=== PATIENT | male | born 1950 | race Caucasian/White ===

== ENCOUNTER 2019-07-02 10:31 | Outpatient (CLI) | payer MEDICARE ==
[~2019-07-02 10:31] MED LIST: Gadobenate Dimeglumine 529 MG/1 ML (20ML VIAL) ONE
--- NOTE | 2019-07-02 12:01 | MRI ---
Exam: Brain MRI with and without contrast HISTORY: Alzheimer's. Dementia, x2 years. COMPARISON: None FINDINGS: Gradient echo sequence: No hemorrhage Calvarium: Appropriate T1 marrow signal intensity Midline brain parenchyma: Unremarkable Cerebrum:No parenchymal mass, mass effect or midline shift. Brain volume, age-appropriate. Cortical g ray-white matter differentiation is preserved, with the exception of the left frontal lobe where there is a small focus of encephalomalacia and gliosis. There are T2 and FLAIR white matter hyperinte nsities due to chronic small vessel ischemic change. Ventricles: No evidence of hydrocephalus. Sinuses and mastoid air cells: There is paranasal sinus mucosal thickening, mild Diffusion: Central arterial flow is maintained. Absent restricted diffusion. Postcontrast images: No pathologic enhancement of the brain parenchyma. IMPRESSION: 1. Age-appropriate brain volume. 2. Chronic small vessel ischemic change of the white matter. 3. Absent restricted diffusion. No acute infarct. 4. Encephalomalacia and gliosis involving the left frontal lobe. Transcribed Date/Time: 07/02/2019 12:44 PM
== END 2019-07-02 10:32 | disposition home or self-care (01) ==
LOC: SCSMRI 10:31
PROVIDERS: ATTEND Psychiatry & Neurology Neurology
DX: G30.1 Alzheimer's disease with late onset (principal); I67.82 Cerebral ischemia; G93.89 Other specified disorders of brain
CPT/HCPCS: 70553; 82565; A9577

== ENCOUNTER 2024-05-22 16:00 | Outpatient (CLI) | payer MEDICARE | END 2024-05-22 16:01 | disposition home or self-care (01) | LOC: SLEEPLAB 16:00 | PROVIDERS: ATTEND Internal Medicine | DX: G47.33 Obstructive sleep apnea (adult) (pediatric) (principal); R53.83 Other fatigue; R06.83 Snoring | CPT/HCPCS: 95800 ==